=== PATIENT | male | born 1940 | race Caucasian/White ===

== ENCOUNTER 2025-05-13 10:41 | Emergency (ER) | payer MEDICARE, OTHER, SELFPAY ==
[2025-05-13 10:52] VITALS: BP 149/78
--- NOTE | 2025-05-13 11:56 | ED.MUSCINJ ---
HPI-Injury
General
Chief Complaint: Fall
Source: patient
Exam Limitations: none
Time Seen by Provider: 05/13/25 11:31
History of Present Illness-Injury
Initial Injury comments:
85-year-old male on Plavix presents after a fall he sustained 2 days ago. He fell forward. He complains of anterior chest wall pain. He also struck the left side of his head. No loss of conscious at that time. He denies shortness of breath. It
does hurt occasionally to take a deep breath. No other complaints
Phy Exam
Physical Exam
Physical Exam:
General: Well-appearing male no acute respiratory distress
HEENT: Normal cephalic contusion noted to the left lateral eyebrow
Heart: Regular rate and rhythm
Lungs: Clear no wheeze
Musculoskeletal exam: The spine is nontender. He is slightly tender over the anterior chest wall
Neurologic: Conversing appropriately
Injury Course
Orders/Labs/Results
Orders:
Orders
05/13/25 11:46
CT Chest W/o Iv Contrast Urgent
Comment:
Reason For Exam: fall, chest pain
CT Head W/o Iv Contrast Urgent
Comment:
Reason For Exam: fall, head strike
MDM/Problems Addressed
Differential Diagnosis Includes:
Patient with mechanical fall with anterior chest pain and head strike. Will order CT of the head and chest
*Pulse Oximetry
SaO2: 98
Oxygen Mode of Delivery: Room air
Patient hypoxic: no
*Critical Care Note
Total Time (30-74mins, 75-104mins- exclusive of procedures): Not Applicable
Update Note
Update Note:
CT head negative for acute finding. CT chest shows possible acute nondisplaced anterior lateral seventh rib fracture. Recommended Tylenol for pain. Return precautions given. Stable for discharge
ED Attending Note
-
Portions of this chart may have been created with voice recognition software.� Occasional wrong word or��sound alike� substitutions may have occurred due to the inherent limitations of voice recognition software.
Discharge Plan
Departure
Patient Disposition: Home (Routine Discharge)
Date of Disposition: 05/13/25
Time of Disposition: 13:05
Patient with high blood pressure during this ER visit?: No
Discharge Problem:
Fracture, rib
Activity Restrictions/Additional Instructions:
Avoid heavy lifting or twisting. Use Tylenol for pain peer return if worse otherwise follow-up with your doctor
Interventions
Interventions:
*Risk Screen - Suicide Last Done: 05/13/25 11:00
*General Assessment Last Done: 05/13/25 11:00
*ED COVID-19 Vaccine History Last Done: 05/13/25 11:00
*ED Influenza Vaccine History Last Done: 05/13/25 11:00
[facility] Fall Risk Assessment Tool Last Done: 05/13/25 11:30
ED-Musculoskeletal Assessment Last Done: 05/13/25 11:43
ED- Neurological Assessment Last Done: 05/13/25 11:43
ED-Skin Assessment Last Done: 05/13/25 11:43
Discharge Date and Time
Print Language: FRISIAN
[2025-05-13 13:12] VITALS: BP 175/72
== END 2025-05-13 13:30 | disposition home or self-care (01) ==
LOC: EMR 10:41
PROVIDERS: EMERGENCY PHYSICIAN Emergency Medicine
DX: S22.31XA Fracture of one rib, right side, initial encounter for closed fracture (principal); W19.XXXA Unspecified fall, initial encounter; Z79.02 Long term (current) use of antithrombotics/antiplatelets
CPT/HCPCS: 99284; 70450; 71250